=== PATIENT | female | born 1995 | race Caucasian/White ===

== ENCOUNTER → 2018-05-21 16:34 | Outpatient (CLI) | payer OTHER, SELFPAY ==
[2018-05-29 15:59] LABS: HPV Reflexed? NOT INDICATED
== END ==
PROVIDERS: Visit Provider Obstetrics & Gynecology
DX: Z12.4 Encounter for screening for malignant neoplasm of cervix (principal)
CPT/HCPCS: 88175; G0145

== ENCOUNTER → 2019-05-27 11:16 | Outpatient (CLI) | payer OTHER, SELFPAY ==
[2019-06-02 15:17] LABS: HPV Reflexed? NOT INDICATED
== END ==
PROVIDERS: Visit Provider Obstetrics & Gynecology
DX: Z12.4 Encounter for screening for malignant neoplasm of cervix (principal)
CPT/HCPCS: 88175; G0145

== ENCOUNTER → 2021-07-27 08:53 | Outpatient (CLI) | payer OTHER, SELFPAY ==
[2021-08-02 18:52] LABS: HPV Reflexed? NOT INDICATED
== END ==
PROVIDERS: Visit Provider Obstetrics & Gynecology
DX: Z12.4 Encounter for screening for malignant neoplasm of cervix (principal)
CPT/HCPCS: 88175; G0145

== ENCOUNTER → 2022-11-12 | Outpatient (CLI) | payer OTHER, SELFPAY ==
[2022-11-12 13:15] LABS: hCG Titer Quant., Serum 502 mIU/mL (1-3)
== END | disposition home or self-care (01) ==
LOC: PAVLAB 12:10
PROVIDERS: PCP Family Medicine; Referring Provider Obstetrics & Gynecology; Visit Provider Obstetrics & Gynecology
DX: N92.0 Excessive and frequent menstruation with regular cycle (principal)
CPT/HCPCS: 36415; 84702

== ENCOUNTER → 2022-11-14 | Outpatient (CLI) | payer OTHER, SELFPAY ==
[2022-11-14 13:43] LABS: hCG Titer Quant., Serum 1005 mIU/mL (1-3)
== END | disposition home or self-care (01) ==
LOC: PAVLAB 12:37
PROVIDERS: PCP Family Medicine; Referring Provider Obstetrics & Gynecology; Visit Provider Obstetrics & Gynecology
DX: N92.0 Excessive and frequent menstruation with regular cycle (principal)
CPT/HCPCS: 36415; 84702

== ENCOUNTER → 2022-11-26 | Outpatient (CLI) | payer OTHER, SELFPAY ==
--- NOTE | 2022-11-26 17:03 | US_ITS ---
STUDY: FIRST TRIMESTER OBSTETRICAL ULTRASOUND REASON FOR EXAM: Female, 27 years old Spotting LMP: Unknown. TECHNIQUE: Transabdominal and Transvaginal TECHNICAL QUALITY: Adequate. PRIOR ULTRASOUND: None. FINDINGS: There is visualization of a single gestational sac in a normal intrauterine position. The mean sac diameter (MSD) measures 1.8 cm, indicating an estimated gestational age (EGA) of 6 weeks, 5 days. The gestational sac shape is within normal limits. There is a visualized yolk sac. The yolk sac measures 0.4 cm. The placenta is non-visualized. There is visualization of a live embryo. The crown-rump length (CRL) measures 0.5 cm, indicating an estimated gestational age (EGA) of 6 weeks, 3 days. There is demonstrated cardiac activity with a heart rate of 119 bpm. The estimated gestation age (EGA) by US is 6 weeks, 4 days. The estimated date of delivery (YELITZA) by US is July 18, 2023. The uterus measures 9.2 x 5.8 x 4.1 cm. There is a 0.9 cm hypoechoic region compatible subchorionic hemorrhage. There is no demonstrated uterine fibroid. The cervix is closed. The right ovary measures 2.2 x 1.8 x 1.8 cm. There are adjacent 1.6 and 0.8 cm cysts. There is no visualized right adnexal mass or complex lesion. The left ovary measures 4.6 x 2.6 x 2.4 cm. There is 2.6 cm cyst. There are are adjacent 2.0 x 1.2 cm cysts. There is no visualized left adnexal mass or complex lesion. There is no fluid in the cul de sac. US/Transvaginal w/Preg US IMPRESSION: Single intrauterine gestation 6 weeks 4 days with estimated due date July 18, 2023. There is small region of subchorionic hemorrhage. Ovarian and paraovarian cysts. Electronically Signed: Ulysses Hugo MD at 18:40 EST ,
== END | disposition home or self-care (01) ==
LOC: US 17:02
PROVIDERS: PCP Family Medicine; Visit Provider Obstetrics & Gynecology
DX: O20.0 Threatened abortion (principal); O99.891 Other specified diseases and conditions complicating pregnancy; N92.0 Excessive and frequent menstruation with regular cycle
CPT/HCPCS: 36415; 76817; 84702; 86850; 86900; 86901

== ENCOUNTER → 2022-12-12 | Outpatient (CLI) | payer OTHER, SELFPAY ==
[2022-12-13 21:07] LABS: Chlamydia By Nucleic Acid AMP Negative (Negative)
[2022-12-13 22:36] LABS: Gonococcus By Nucleic Acid AMP Negative (Negative)
== END | disposition home or self-care (01) ==
LOC: LABSPEC 10:51
PROVIDERS: PCP Family Medicine; Referring Provider Obstetrics & Gynecology; Visit Provider Obstetrics & Gynecology
DX: Z34.90 Encounter for supervision of normal pregnancy, unspecified, unspecified trimester (principal)
CPT/HCPCS: 87086; 87491; 87591

== ENCOUNTER → 2023-01-08 | Outpatient (CLI) | payer OTHER, SELFPAY ==
[2023-01-08 16:41] LABS: Basophil# 0.03 X10^3/uL; Basophil% 0.4 % (0-1); Eosinophil# 0.07 X10^3/uL; Eosinophils% 0.8 % (0-5); Hematocrit 38.4 % (37-47); Hemoglobin 12.5 g/dL (12.0-15.0); Lymphocyte % 22.3 % (19-41); Mean Corp Hgb Conc 32.6 g/dL (32-36); Mean Corpuscular Hgb 31.6 pg (27.0-32.0); Mean Platelet Vol. 10.3 fl (6.2-12.0); Monocyte% 5.9 % (0-10); NRBC Flagged by Analyzer 0 % (0-5); Neutrophil # 5.98 X10^3/uL (2.7-7.7); Platelet Count 277 K/mm3 (150-450); RBC Distribution Width CV 12.5 % (11.6-14.6); RBC Distribution Width SD 44.6 fl (35.1-43.9); Red Blood Count 3.96 M/mm3 (4.2-5.4); White Blood Count 8.5 K/mm3 (4.4-11.0)
[2023-01-08 17:32] LABS: NATERA MAILED SPECIMEN
[2023-01-08 19:59] LABS: HIV - WCH Non-Reactive (Nonreactive); Hepatitis B Surface Antigen Non-Reactive (Nonreactive); Hepatitis C Antibody Non-Reactive (Nonreactive); Rubella IgG Reactive (Nonreactive); Syphilis Antibodies Non-reactive
== END | disposition home or self-care (01) ==
PROVIDERS: PCP Family Medicine; Referring Provider Obstetrics & Gynecology; Visit Provider Obstetrics & Gynecology
DX: Z34.82 Encounter for supervision of other normal pregnancy, second trimester (principal)
CPT/HCPCS: 36415; 85025; 86703; 86762; 86780; 86803; 86850; 86900; 86901; 87340

== ENCOUNTER → 2023-04-02 | Outpatient (CLI) | payer OTHER, SELFPAY ==
[2023-04-02 11:50] LABS: Absolute Lymphocyte Count 1.53 X10^3/uL (0.83-4.51); Absolute Neutrophil Count 8.9 X10^3/uL (2.0-7.7); Basophil# 0.06 X10^3/uL; Basophil% 0.5 % (0-1); Eosinophil# 0.08 X10^3/uL; Eosinophils% 0.7 % (0-5); Hematocrit 31.8 % (37-47); Hemoglobin 10.3 g/dL (12.0-15.0); Lymphocyte # 1.53 X10^3/ul (0.83-4.51); Lymphocyte % 13.6 % (19-41); Mean Corp Hgb Conc 32.4 g/dL (32-36); Mean Corpuscular Hgb 31.7 pg (27.0-32.0); Mean Corpuscular Volume 97.8 fL (81-99); Mean Platelet Vol. 10.5 fl (6.2-12.0); Monocyte% 4.5 % (0-10); NRBC Flagged by Analyzer 0 % (0-5); Neutrophil # 8.88 X10^3/uL (2.7-7.7); Neutrophil % 79.3 % (47-70); Platelet Count 294 K/mm3 (150-450); RBC Distribution Width CV 13.5 % (11.6-14.6); RBC Distribution Width SD 48.3 fl (35.1-43.9); Red Blood Count 3.25 M/mm3 (4.2-5.4); White Blood Count 11.2 K/mm3 (4.4-11.0)
[2023-04-02 12:05] LABS: Glucose Challenge Gest 1H 50g 122 mg/dL (70-140)
[2023-04-02 12:38] LABS: HIV - WCH Non-Reactive (Nonreactive); Syphilis Antibodies Non-reactive
== END | disposition home or self-care (01) ==
LOC: PAVLAB 11:13
PROVIDERS: PCP Family Medicine; Referring Provider Obstetrics & Gynecology; Visit Provider Obstetrics & Gynecology
DX: O09.90 Supervision of high risk pregnancy, unspecified, unspecified trimester (principal); Z13.1 Encounter for screening for diabetes mellitus
CPT/HCPCS: 36415; 82950; 85025; 86703; 86780

== ENCOUNTER → 2023-04-23 | Outpatient (CLI) | payer OTHER, SELFPAY | END | disposition home or self-care (01) | LOC: LABSPEC 11:38 | PROVIDERS: PCP Family Medicine; Referring Provider Nurse Practitioner Women's Health; Visit Provider Nurse Practitioner Women's Health | DX: N39.0 Urinary tract infection, site not specified (principal) | CPT/HCPCS: 87086; 87088 ==

== ENCOUNTER → 2023-05-31 | Outpatient (CLI) | payer OTHER, SELFPAY ==
[2023-05-31 15:47] LABS: ALB/GLOB Ratio 0.7 RATIO (0.9-2.4); AST(SGOT) 15 U/L (15-37); Alanine Aminotransfer ALT/SGPT 16 U/L (13-56); Albumin, Serum 2.7 g/dL (3.2-5.0); Alkaline Phosphatase 92 U/L (45-117); Anion Gap 9 (5-15); BUN 8 mg/dL (7-18); BUN/Creat Ratio 13.5 RATIO (10-20); Chloride 108 mmol/L (98-107); Creatinine, Serum 0.59 mg/dL (0.55-1.02); EST Glomerular Filtration Rate 127 mL/min (>60); Est Glom Filt Rate - Afr Amer 153 mL/min (>60); Globulin 3.8 g/dL (2.2-4.2); Glucose 81 mg/dL (74-106); Potassium 3.4 mmol/L (3.5-5.1); Protein, Total 6.5 g/dL (6.4-8.2); Sodium Level 139 mmol/L (136-145)
== END | disposition home or self-care (01) ==
PROVIDERS: PCP Family Medicine; Referring Provider Obstetrics & Gynecology; Visit Provider Obstetrics & Gynecology
DX: L29.9 Pruritus, unspecified (principal)
CPT/HCPCS: 36415; 80053

== ENCOUNTER → 2023-06-14 | Outpatient (CLI) | payer OTHER, SELFPAY | END | disposition home or self-care (01) | PROVIDERS: Referring Provider Registered Nurse; Visit Provider Registered Nurse | DX: O09.90 Supervision of high risk pregnancy, unspecified, unspecified trimester (principal); Z3A.00 Weeks of gestation of pregnancy not specified | CPT/HCPCS: 87081 ==

== ENCOUNTER → 2023-06-21 | Outpatient (CLI) | payer OTHER, SELFPAY ==
[2023-06-21 15:49] LABS: Hematocrit 33.4 % (37-47); Hemoglobin 10.6 g/dL (12.0-15.0); Mean Corp Hgb Conc 31.7 g/dL (32-36); Mean Corpuscular Hgb 31.6 pg (27.0-32.0); Mean Corpuscular Volume 99.7 fL (81-99); Mean Platelet Vol. 10.8 fl (6.2-12.0); Platelet Count 289 K/mm3 (150-450); RBC Distribution Width CV 13.2 % (11.6-14.6); RBC Distribution Width SD 48.2 fl (35.1-43.9); Red Blood Count 3.35 M/mm3 (4.2-5.4); White Blood Count 10.5 K/mm3 (4.4-11.0)
== END | disposition home or self-care (01) ==
LOC: LAB 14:36
PROVIDERS: Referring Provider Registered Nurse; Visit Provider Registered Nurse
DX: D64.9 Anemia, unspecified (principal)
CPT/HCPCS: 36415; 85027

== ENCOUNTER → 2023-06-27 | Outpatient (CLI) | payer OTHER, SELFPAY ==
[2023-06-27 14:04] LABS: Absolute Neutrophil Count 6.9 X10^3/uL (2.0-7.7); Basophil# 0.06 X10^3/uL; Basophil% 0.6 % (0-1); Eosinophil# 0.05 X10^3/uL; Eosinophils% 0.5 % (0-5); Hematocrit 35.2 % (37-47); Hemoglobin 11.3 g/dL (12.0-15.0); Lymphocyte % 17.9 % (19-41); Mean Corp Hgb Conc 32.1 g/dL (32-36); Mean Corpuscular Hgb 31.7 pg (27.0-32.0); Mean Corpuscular Volume 98.6 fL (81-99); Mean Platelet Vol. 10.6 fl (6.2-12.0); Monocyte# 0.65 X10^3/uL; Monocyte% 6.8 % (0-10); NRBC Flagged by Analyzer 0 % (0-5); Neutrophil # 6.88 X10^3/uL (2.7-7.7); Neutrophil % 72.4 % (47-70); Platelet Count 284 K/mm3 (150-450); RBC Distribution Width CV 13.2 % (11.6-14.6); RBC Distribution Width SD 47.8 fl (35.1-43.9); Red Blood Count 3.57 M/mm3 (4.2-5.4); White Blood Count 9.5 K/mm3 (4.4-11.0)
[2023-06-27 14:18] LABS: Protein, Urine (Random) 9.5 mg/dL (<11.9); Protein:Creat Ratio 242 mg/g CRE (0-200)
[2023-06-27 14:37] LABS: ALB/GLOB Ratio 0.8 RATIO (0.9-2.4); AST(SGOT) 18 U/L (15-37); Alanine Aminotransfer ALT/SGPT 15 U/L (13-56); Albumin, Serum 2.8 g/dL (3.2-5.0); Alkaline Phosphatase 125 U/L (45-117); Anion Gap 6 (5-15); BUN 8 mg/dL (7-18); BUN/Creat Ratio 10.1 RATIO (10-20); Calcium,Total 8.5 mg/dL (8.5-10.1); Chloride 110 mmol/L (98-107); Creatinine, Serum 0.79 mg/dL (0.55-1.02); EST Glomerular Filtration Rate 91 mL/min (>60); Est Glom Filt Rate - Afr Amer 110 mL/min (>60); Globulin 3.6 g/dL (2.2-4.2); Glucose 78 mg/dL (74-106); Potassium 3.1 mmol/L (3.5-5.1); Protein, Total 6.4 g/dL (6.4-8.2); Sodium Level 141 mmol/L (136-145)
== END | disposition home or self-care (01) ==
LOC: PAVLAB 13:47
PROVIDERS: Referring Provider Obstetrics & Gynecology; Visit Provider Obstetrics & Gynecology
DX: O09.90 Supervision of high risk pregnancy, unspecified, unspecified trimester (principal); Z3A.00 Weeks of gestation of pregnancy not specified
CPT/HCPCS: 36415; 80053; 82570; 84156; 85025

== ENCOUNTER 2023-07-05 12:05 | Inpatient (IN) | payer OTHER, SELFPAY ==
[2023-07-05] VITALS (51 sets, daily range): BP systolic 111–133; BP diastolic 55–88; PULSE 77–113; TEMP 35.8–37.3; O2SAT 91–100; BMI 24.3
[2023-07-05] MEDS: Lactated Ringers 1,000 ML 50 ML IV (13:00)
[2023-07-05 13:13] LABS: Absolute Lymphocyte Count 1.32 X10^3/uL (0.83-4.51); Absolute Neutrophil Count 7.3 X10^3/uL (2.0-7.7); Basophil# 0.04 X10^3/uL; Basophil% 0.4 % (0-1); Eosinophil# 0.03 X10^3/uL; Eosinophils% 0.3 % (0-5); Hematocrit 31.8 % (37-47); Hemoglobin 10.6 g/dL (12.0-15.0); Lymphocyte # 1.32 X10^3/ul (0.83-4.51); Lymphocyte % 14.3 % (19-41); Mean Corp Hgb Conc 33.3 g/dL (32-36); Mean Corpuscular Hgb 32.1 pg (27.0-32.0); Mean Corpuscular Volume 96.4 fL (81-99); Mean Platelet Vol. 10.4 fl (6.2-12.0); Monocyte# 0.46 X10^3/uL; NRBC Flagged by Analyzer 0 % (0-5); Neutrophil # 7.28 X10^3/uL (2.7-7.7); Platelet Count 274 K/mm3 (150-450); RBC Distribution Width CV 13.2 % (11.6-14.6); RBC Distribution Width SD 47.1 fl (35.1-43.9); White Blood Count 9.2 K/mm3 (4.4-11.0)
[2023-07-05] MEDS: Oxytocin 15 Units/NS 250ml 15 UNITS/250 ML IV.SOLN 2 UNITS IV (13:30)
[2023-07-05 14:08] LABS: ALB/GLOB Ratio 0.8 RATIO (0.9-2.4); AST(SGOT) 15 U/L (15-37); Alanine Aminotransfer ALT/SGPT 14 U/L (13-56); Albumin, Serum 2.7 g/dL (3.2-5.0); Alkaline Phosphatase 129 U/L (45-117); Anion Gap 7 (5-15); BUN 6 mg/dL (7-18); BUN/Creat Ratio 8.4 RATIO (10-20); Calcium,Total 8.6 mg/dL (8.5-10.1); Chloride 109 mmol/L (98-107); Creatinine, Serum 0.71 mg/dL (0.55-1.02); EST Glomerular Filtration Rate 103 mL/min (>60); Est Glom Filt Rate - Afr Amer 124 mL/min (>60); Estimated Creatinine Clearance 121.08 ml/min; Globulin 3.6 g/dL (2.2-4.2); Glucose 106 mg/dL (74-106); Protein, Total 6.3 g/dL (6.4-8.2); Sodium Level 140 mmol/L (136-145)
--- NOTE | 2023-07-05 15:58 | HP.PCM.OB_ITS ---
HPI - General General Date of Admission: 07/05/23 Date of Service: 07/05/23 HPI Narrative LIZBETH SMA, is a 28 F at 39.0 weeks who presents to L&D after being seen in the office. Low fundal height and US performed by Dr Ortega. Verified low SIOBHAN. Patient sent to unit for IOL due to oligohydramnios. Maternal Data Information YELITZA Calculator Estimated Delivery Date Method Current WG Current Estimate 07/12/23 LMP (Certain) 39w 0d Final YELITZA: 07/12/23 Final YELITZA Source: US >20 weeks Gestational age: 39.0 [facility] Medical History (Updated 07/05/23 @ 16:02 by Whitney Case CNM) Asthma Oligohydramnios Well woman exam with routine gynecological exam Home Medications cholecalciferol (vitamin D3) 50 mcg (2,000 unit) capsule 50 mcg PO DAILY ask doctor 07/31/22 [History Last Taken Unknown] montelukast 10 mg tablet (Singulair) 10 mg PO DAILY seasonal allergy 07/31/22 [History Last Taken Unknown] diphenhydramine HCl 25 mg capsule (Benadryl) 25 mg PO QHS PRN seasonal allergy 12/06/22 [History Last Taken Unknown] multivit-min no.71-iron fum 28 mg-folate no.1 1 mg-dha 300 mg capsule (PNV- [place]) 1 cap PO 12/06/22 [History Last Taken Unknown] albuterol sulfate 90 mcg/actuation aerosol inhaler See Rx Instructions .Route .COMPLEX asthma #8.5 ea 01/10/23 [Rx Last Taken Unknown] Allergy/AdvReac Type Severity Reaction Status Date / Time No Known Allergies Allergy Verified 07/05/23 13:19 Family History Grandfather Stomach cancer Colon cancer, Onset Age: 55 Paternal Social History adopted: No household members: spouse housing: house current occupational status: employed current occupation: [employer] current occupational exposures/hazards: No pets and animals: Yes pets and animals: dog(s) history of recent travel: No sexually active: Yes Smoking Status: Never smoker alcohol intake: current details: occasionally- not while substance use type: does not use well-balanced diet: daily or most days caffeine: No eating out: 1-3 times/week during the past year weight has: remained stable what type of physical activity do you participate in: walking frequency: 5-6 times per week duration: 15-30 minutes/day altagracia/episcopalian: None seatbelt use: always do you feel safe at home: Yes additional social history: - Lamine- [employer] History 1 Elective abortions Hx Para 0 Spontaneous abortions Hx # Term Pregnancies Ectopic pregnancies Hx # Pregnancies Multiple births # of living children Visit Details Expected Delivery Route/Plan Labor Preferences- CB/BF classes: encourage labor support person: Lamine labor intervention preferences: pain management options preferred: open to epidural cut cord/dad catch: would love to catch! : [] PP control planned: [] discussed possible routes of delivery and associated risks: [] special requests: [] Plans Covid status: discussed Flu vaccine: discussed Tdap vaccine: discussed Rhogam: na LARC form signed: obtained movement and labor precautions reviewed. Problem list reviewed and updated with the most current plan of care details and appropriate orders placed. Relevant counseling for the gestational age provided. Continue routine care and follow up unless otherwise noted in visit notes/problem list details OB Flowsheet Initial Weight: Not Recorded Date -?-?-?-?-?-?-?-?-?-?-?-?- EGA Weight BP Urine Prot -?-?-?-?-?-?-?-?-?-?-?-?- Glucose FHR FuHt Pres Dilation -?-?-?-?-?-?-?-?-?-?-?-?- Effaced St Visit Note 12/12/22 -?-?-?-?-?-?-?-?-?-?-?-?- 9w 5d 147 lb 8 oz 133/81 -?-?-?-?-?-?-?-?-?-?-?-?- 163 -?-?-?-?-?-?-?-?-?-?-?-?- LC- CRL c/w LMP. considering genetic screening and carrier screenings. LC- CRL c/w LMP. 2mm SHELLY not ed. +brown bleeding. considering genetic screening and carrier screenings. 01/08/23 -?-?-?-?-?-?-?-?-?-?-?-?- 13w 4d 149 lb 2 oz 134/85 Nega tive -?-?-?-?-?-?-?-?-?-?-?-?- Negative 155 -?-?-?-?-?-?-?-?-?-?-?-?- JV- still having some spotting. unsure if typo above, SHELLY is 22mm. active movement present. precautions discussed. pt desires NIPT only 02/06/23 -?-?-?-?-?-?-?-?-?-?-?-?- 17w 5d 151 lb 6 oz 133/72 Nega tive -?-?-?-?-?-?-?-?-?-?-?-?- Negative 152 -?-?-?-?-?-?-?-?-?-?-?-?- MH-No Vb, crampi ng. Feels well. MFM US 02/1203/08/23 -?-?-?-?-?-?-?-?-?-?-?-?- 22w 0d 156 lb 8 oz 133/80 Nega tive -?-?-?-?-?-?-?-?-?-?-?-?- Negative 145 22 -?-?-?-?-?-?-?-?-?-?-?-?- KW-+flutters. no cramping/vb. US reviewed-normal. GCT next visit 04/05/23 -?-?-?-?-?-?-?-?-?-?-?-?- 26w 0d 161 lb 4 oz 130/79 Nega tive -?-?-?-?-?-?-?-?-?-?-?-?- Negative 140 26 -?-?-?-?-?-?-?-?-?-?-?-?- SM- no vb lof go od fm no regular ctx 04/23/23 -?-?-?-?-?-?-?-?-?-?-?-?- 28w 4d 162 lb 4 oz 118/76 Nega tive -?-?-?-?-?-?-?-?-?-?-?-?- Negative -?-?-?-?-?-?-?-?-?-?-?-?- -nurse visit f or urinary frequency. +UA. Rx macrobid. Culture pending 05/03/23 -?-?-?-?-?-?-?-?-?-?-?-?- 30w 0d 130/67 Negative -?-?-?-?-?-?-?-?-?-?-?-?- Negative 150 29 -?-?-?-?-?-?-?-?-?-?-?-?- Kw-+ FM. no lof/ vb/ctx LARC done. no concerns 05/17/23 -?-?-?-?-?-?-?-?-?-?-?-?- 32w 0d 161 lb 4 oz 130/81 Nega tive -?-?-?-?-?-?-?-?-?-?-?-?- Negative 150 32 -?-?-?-?-?-?-?-?-?-?-?-?- LC- no vb/ctx/lo f. good fm. CBE recommended, reviewed pain mgmt. 05/31/23 -?-?-?-?-?-?-?-?-?-?-?-?- 34w 0d 164 lb 131/76 Negative -?-?-?-?-?-?-?-?-?-?-?-?- Negative 165 34 -?-?-?-?-?-?-?-?-?-?-?-?- JV- pt complains of itching on bottom of feet She denies hands itching. will collect bile acids to be on safe side. no other complaints other than some swelling that is minor. 06/14/23 -?-?-?-?-?-?-?-?-?-?-?-?- 36w 0d 168 lb 6 oz 130/76 Nega tive -?-?-?-?-?-?-?-?-?-?-?-?- Negative 140 36 Cephalic -?-?-?-?-?-?-?-?-?-?-?-?- LC- no complaint s. no ctx/lof/vb. good fm. less itching. obtaining repeat cbc for anemia. 06/21/23 -?-?-?-?-?-?-?-?-?-?-?-?- 37w 0d 198 lb 8 oz 157/84 122/68 Negative -?-?-?-?-?-?-?-?-?-?-?-?- Negative 145 37 Cephalic -?-?-?-?-?-?-?-?-?-?-?-?- SM- no vb lof go od fm no regular ctx 06/27/23 -?-?-?-?-?-?-?-?-?-?-?-?- 37w 6d 165 lb 8 oz 147/84 130/87 Negative -?-?-?-?-?-?-?-?-?-?-?-?- Negative 155 38 Cephalic 2 .5 -?-?-?-?-?-?-?-?-?-?-?-?- 80 -1 SM- no vb lof good fm no regular ctx 07/01/23 -?-?-?-?-?-?-?-?-?-?-?-?- 38w 3d 168 lb 8 oz 137/81 Nega tive -?-?-?-?-?-?-?-?-?-?-?-?- Negative -?-?-?-?-?-?-?-?-?-?-?-?- -nurse visit f or BP check only. Wnl. Denies headache vision changes 07/05/23 -?--?-?-?-?-?-?-?-?-?-?-?- 39w 0d 167 lb 8 oz 152/88 Nega tive -?-?-?-?-?-?-?-?-?-?-?-?- Negative 145 35 Cephalic 3 -?-?-?-?-?-?-?-?-?-?-?-?- 80 -1 KW-no vb/l of/regular ctx. good fm. labor precautions reviewed. US ordered for S<L KW-no vb/lof/regular ctx. go od fm. labor precautions reviewed. SM did office US. Oligo-to WP for IOL NST FHR Rate Baby A Baseline: 145 Variability:: Moderate Accelerations:: 15 x 15 Decelerations:: None NST Reactive:: Yes FHR Category:: Category I Uterine Activity:: irregular ROS Constitutional Constitutional: Denies change in weight, fatigue, fever(s), headache(s), poor appetite or weakness Eyes Eyes: Denies blurry vision, change in vision, floaters, seeing flashes or spots in vision ENT HEENT: Denies dizziness, headache(s), loss taste/smell or sore throat Cardiovascular Cardiovascular: Denies chest pain, dizziness, dyspnea, irregular heart rhythm, lightheadedness, palpitations or rapid heart rate Respiratory/Chest Respiratory/Chest: Denies change in mental status, chest tightness, cough, dyspnea or breast pain Gastrointestinal Gastrointestinal: Denies anorexia, chewing difficulty, constipation, diarrhea or weight changes Genitourinary Genitourinary: Denies difficulty urinating, dysuria, flank pain, genital pain, urinary frequency or urinary urgency Musculoskeletal Musculoskeletal: Denies back pain, difficulty walking, extremity pain, joint pain, muscle cramps or muscle weakness Integumentary Integumentary: Denies lesions or unusual bruising Neurologic Neurologic: Denies abnormal movements, abnormal speech, dizziness, numbness, seizure-like activity, syncope or weakness Psychiatric Psychiatric: Denies behavioral changes, change in appetite, confusion, depression, homicidal ideation, suicidal ideation or suicidal thoughts Endocrine Endocrinology: Denies excessive sweating, polydipsia or polyuria Hematologic/Lymphatic Hematologic/Lymphatic: Denies anemia Allergic/Immunologic Allergic/Immunologic: Denies itchy eyes, lip swelling, throat swelling, tongue swelling or wheezing Vital Signs Vital Signs Vital Signs: 07/05/23 12:35 07/05/23 12:35 07/05/23 12:35 Temperature 99.1 F Temperature Source Pulse Rate 102 H Blood Pressure 129/82 H BP Systolic 129 BP Diastolic 82 07/05/23 12:35 07/05/23 12:35 07/05/23 13:55 Temperature 99.1 F Temperature Source Temporal Pulse Rate Blood Pressure 126/71 H BP Systolic 126 BP Diastolic 71 07/05/23 13:55 07/05/23 13:55 07/05/23 13:56 Temperature 98.2 F Temperature Source Temporal Pulse Rate 94 Blood Pressure BP Systolic BP Diastolic 07/05/23 13:56 07/05/23 15:15 07/05/23 15:15 Temperature 98.2 F Temperature Source Pulse Rate 93 Blood Pressure 129/63 H BP Systolic 129 BP Diastolic 63 07/05/23 15:15 Temperature 99.1 F Temperature Source Pulse Rate Blood Pressure BP Systolic BP Diastolic Weight Weight: 164 lb 12.8 oz Body Mass Index (BMI) 24.3 Physical Exam Const alert, oriented x3 and no apparent distress General Appearance: cooperative Orientation / Consciousness: awake HEENT normocephalic Neck full ROM Lymph Lymphatic: no lymphadenopathy noted Chest inspection of chest normal Resp normal respiratory effort and normal air movement Effort and Inspection: able to speak in complete sentences and symmetric chest movement GI soft to palpation and non-tender Inspection: gravid Palpation: soft; Negative for tender external exam normal Back/Spine normal to inspection Extremity normal to inspection and full ROM Skin no rashes or lesions noted Psych mental status grossly normal Appearance: grossly normal Speech: normal speech Labs Labs Labs: Blood Type A POSITIVE Antibody Screen NEGATIVE Hct 31.8 % (37-47) L Hgb 10.6 g/dL (12.0-15.0) L Obstetrics US Syphilis Total Ab Non-reactive Rubella IgG Antibody Reactive (Nonreactive) Hep Bs Antigen Non-Reactive (Nonreactive) Chlamydia DNA (BHUPENDRA) Negative (Negative) Neisseria gonorrhoeae DNA (BHUPENDRA) Negative (Negative) HIV 1&2 Antibody Non-Reactive (Nonreactive) Glucose 1 Hr 50 gm 122 mg/dL (70-140) Miscellaneous Test Assessment & Plan (1) Fundal height low for dates: COMMENT: US (2) Oligohydramnios: (3) Anemia: QUALIFIERS: Anemia type: unspecified type Qualified Code(s): D64.9 - Anemia, unspecified (4) UTI (urinary tract infection): COMMENT: + UA, Macrobid. Culture pending (5) Supervision of high risk , antepartum: COMMENT: PRR , YELITZA 07/12/23, surprise Lamine (6) : QUALIFIERS: Weeks of gestation: 39 weeks Qualified Code(s): Z3A.39 - 39 weeks gestation of COMMENT: GBS neg, LR NIPT Decline carrier testing, anatomy nl declined afp screen. (7) Asthma: COMMENT: controlled with singulair albuterol inhaler ordered (8) Encounter for induction of labor: COMMENT: oligohydramnios at 39.0 weeks PLAN: Patient presents IOL, plan management for with pitocin/AROM. Pain management: plans epidural. GBS negative. Management of any complications: oligohydramnios, asthma I have reviewed the PFSH and made any clinically relevant updates. Reviewed POC with dr ortega and agrees with plan.
[2023-07-05] MEDS: LACTATED RINGERS 500 ML 999 ML IV (17:23)
[2023-07-05] MEDS: fentaNYL-bupivacaine (epidural) 100 ML BAG EPIDURAL (18:55)
--- NOTE | 2023-07-05 21:25 | OP.PCM_ITS ---
Assessment & Plan (1) Vaginal delivery: COMMENT: KW 39.0 oligo-IOL Boy Naeem (2) Encounter for induction of labor: COMMENT: oligohydramnios at 39.0 weeks (3) Oligohydramnios: (4) Fundal height low for dates: COMMENT: US (5) Hypokalemia: COMMENT: repeat potassium 1 week (6) Anemia: QUALIFIERS: Anemia type: unspecified type Qualified Code(s): D64.9 - Anemia, unspecified (7) Itching: COMMENT: on feet bile acids negative (8) Supervision of high risk , antepartum: COMMENT: PRR , YELITZA 07/12/23, surprise Lamine (9) : QUALIFIERS: Weeks of gestation: 39 weeks Qualified Code(s): Z3A.39 - 39 weeks gestation of COMMENT: GBS neg, LR NIPT Decline carrier testing, anatomy nl declined afp screen. (10) Asthma: COMMENT: controlled with singulair albuterol inhaler ordered Maternal Data Information YELITZA Calculator Estimated Delivery Date Method Current WG Current Estimate 07/12/23 LMP (Certain) 39w 0d Final YELITZA: 07/12/23 Final YELITZA Source: US >20 weeks Gestational age: 39.0 weeks Vaginal Delivery Maternal Presentation Maternal Presentation: Medically Indicated Induction Maternal Presentation: Progressed well to 10cm dilated and made steady progress with effective maternal pushing. Delivered the head in ANIKA presentation. The head was delivered atraumatically and no nuchal cord was identified. The anterior and posterior shoulders delivered without complication followed by the rest of the and the infant was placed on the maternal abdomen. Delayed cord clamping was employed for approximately 3 minutes. Cord was clamped and cut and gentle traction was applied to the cord and the placenta delivered spontaneously. Immediately following, it was noted to be intact with a 3 vessel cord. The perineum and vagina were inspected and noted to have a first degree laceration which was repaired with 3-0 Vicryl in the usual fashion. EBL was 150cc. Patient and infant tolerated delivery well. Apgars 9/9. Dr Ortega notified of vaginal delivery and orders reviewed. Physician agrees with current plan of care. Type of Induction: Pitocin Medical Reason for Induction: Compromise: list: (oligohydramnios ) Operative Information Date of Procedure: 07/05/23 Pre-Operative Diagnosis: See AP comments Post-Operative Diagnosis: Same Surgery / Procedure Performed: Spontaneous Vaginal Delivery specialty food products supervisor #1: Whitney Case Type of Anesthesia: Epidural Estimated Blood Loss: 150 Time of Delivery: 20:57 Findings Presentation: Vertex Amniotic Membrane Rupture Type: Artificial Amniotic Fluid Description: Clear Placental Delivery Description: Spontaneous Placenta Disposition: [facility] Cord Vessel Description: 3 Vessels Cord Entanglement: None Infant A Gender: Male (1 minute): 9 (5 minute): 9 Delayed Cord Clamping: Yes Post Vaginal Delivery Medications Given After Delivery: IV Pitocin and IM Methergin Episiotomy Description: None Laceration: 1st degree Complication Complications: None Multi Select Codes Urinary/Genital Urinary/Genital CPT Codes: 68622 Vaginal Delivery [facility]
--- NOTE | 2023-07-05 21:34 | DCINST_ITS ---
Discharge Instructions Diet Discharge Diet: No restrictions Activity Discharge Activity: Return to Normal Activity May resume sexual activity in: 6-8 weeks Dressing / Incision Call your doctor if you observe: Fever of 101 or Higher, Coldness, Increased Pain, Numbness or Tingling, Change in Color, Inability to urinate, Inability to have a bowel movement, Using more than 1 pad per hour, Shortness of breath, Dizziness, Fainting spells, Swelling in the ankles, Chest pain, Increased palpitations (irregular heartbeat), Calf discomfort and Uncontrolled pain Follow Up Care Please Follow Up With: Whitney Case CNM When: Please call the office to schedule your follow up appointment in 6 weeks. If you had high blood pressure please call to schedule an appointment in 2 weeks. Test Results: Test results from this visit will be discussed in further detail at your follow- up appointment, if applicable. Discharge Plan Admission Admit Date/Time: 07/05/23 12:05 Attending Provider: Whitney Case Consulting Providers: Ivelisse Ortega Discharge Orders/Prescriptions Prescriptions: No Action montelukast [Singulair] 10 mg tablet 10 mg PO DAILY cholecalciferol (vitamin D3) 50 mcg (2,000 unit) capsule 50 mcg PO DAILY PNV-[place] 28-1-300 mg capsule 1 cap PO diphenhydramine HCl [Benadryl] 25 mg capsule 25 mg PO QHS PRN (Reason: seasonal allergy ) albuterol sulfate 90 mcg/actuation HFA aerosol inhaler See Rx Instructions .ROUTE .COMPLEX Qty: 8.5 0RF Dose Instruction: INHALE 2 PUFFS EVERY 6 HOURS NEEDED FOR SHORTNESS OF BREATH OR WHEEZING Rx Instructions: INHALE 2 PUFFS EVERY 6 HOURS NEEDED FOR SHORTNESS OF BREATH OR WHEEZING Disposition Disposition (needs filled in before D/C Order can be placed): Home, Self Care
[2023-07-05] MEDS: Oxytocin 15 Units/NS 250ml 15 UNITS/250 ML IV.SOLN 83 UNITS IV (21:49)
[2023-07-06] MEDS: 0.9% Saline Lock 10 ML Syringe IV (01:06)
[2023-07-06] MEDS: Potassium Chloride Oral Tablet 10 MEQ PO ×2 (01:07→07:37)
--- NOTE | 2023-07-06 02:32 | NURSING ---
report given to marlen ROSARIO. that rn to assume care of couplet at this time.
[2023-07-06 03:47] VITALS: BP 123/68; PULSE 76; RESP 18; TEMP 36.8
[2023-07-06] MEDS: Acetaminophen 500 MG Tablet 1000 MG PO ×3 (03:48→23:24)
[2023-07-06 07:39] VITALS: BP 148/53; PULSE 94; RESP 16; TEMP 36.6
[2023-07-06] MEDS: Ibuprofen 600 MG Tablet PO ×2 (09:23→17:32)
--- NOTE | 2023-07-06 09:34 | PCM.PN.OB ---
Subjective Subjective Patient doing well without complaints. Tolerating PO. Ambulating and voiding without difficulty. Feeding well. Denies chest pain, shortness of breath, calf pain/swelling, fevers, chills, lightheadedness. Objective Data Objective Data Vital Signs: Vital Signs Temp Pulse Resp BP Pulse Ox O2 Del Method 97.8 F 94 16 148/53 H 98 Room Air 07/06/23 07:39 07/06/23 07:39 07/06/23 07:39 07/06/23 07:39 07/05/23 23:19 07/06/23 03:47 Oxygen Delivery Method Room Air Weight: 164 lb 12.8 oz Body Mass Index (BMI) 24.3 Intake & Output: Intake and Output for Last 24 Hours 07/04/23 07/05/23 07/06/23 23:59 23:59 23:59 Intake Total 1705.00 / 1705.00 250 / 250 Output Total 750 / 750 400 / 400 Balance 955.00 / 955.00 -150 / -150 Lab / Micro Data 07/05/23 13:00 07/05/23 13:00 Labs: Laboratory Results - last 24 hr 07/05/23 13:00: WBC 9.2, RBC 3.30 L, Hgb 10.6 L, Hct 31.8 L, MCV 96.4, MCH 32.1 H, MCHC 33.3, RDW Std Deviation 47.1 H, RDW Coeff of Romario 13.2, Plt Count 274, MPV 10.4, Immature Gran % (Auto) 1.000 H, Neut % (Auto) 79.0 H, Lymph % (Auto) 14.3 L, [place] % (Auto) 5.0, Eos % (Auto) 0.3, Baso % (Auto) 0.4, Absolute Neuts (auto) 7.3, Absolute Lymphs (auto) 1.32, Nucleated RBC % 0, Sodium 140, Potassium 3.0 L, Chloride 109 H, Carbon Dioxide 24.0, Anion Gap 7, BUN 6 L, Creatinine 0.71, Estim Creat Clear Calc 121.08, Est GFR (MDRD) Af Amer 124, Est GFR (MDRD) Non-Af 103, BUN/Creatinine Ratio 8.4 L, Glucose 106, Calcium 8.6, Total Bilirubin 0.30, AST 15, ALT 14, Alkaline Phosphatase 129 H, Total Protein 6.3 L, Albumin 2.7 L, Globulin 3.6, Albumin/Globulin Ratio 0.8 L, Blood Type A POSITIVE, Antibody Screen NEGATIVE ROS Constitutional Constitutional: Reports systems reviewed and no addt'l complaints, except as documented; Denies anorexia or headache(s) Cardiovascular Cardiovascular: Reports systems reviewed and no addt'l complaints, except as documented; Denies dizziness, dyspnea, nausea or tachypnea Respiratory/Chest Respiratory/Chest: Reports systems reviewed and no addt'l complaints, except as documented; Denies cough, dyspnea, shortness of breath at rest or tachypnea Gastrointestinal Gastrointestinal: Reports systems reviewed and no addt'l complaints, except as documented; Denies abdominal pain, constipation or nausea Genitourinary Genitourinary: Reports systems reviewed and no addt'l complaints, except as documented; Denies burning urination, difficulty urinating, dysuria, urinary frequency or urinary incontinence Musculoskeletal Musculoskeletal: Reports systems reviewed and no addt'l complaints, except as documented Integumentary Integumentary: Reports systems reviewed and no addt'l complaints, except as documented Neurologic Neurologic: Reports systems reviewed and no addt'l complaints, except as documented; Denies abnormal speech, dizziness or headache(s) Psychiatric Psychiatric: Reports systems reviewed and no addt'l complaints, except as documented Endocrine Endocrinology: Reports systems reviewed and no addt'l complaints, except as documented Hematologic/Lymphatic Hematologic/Lymphatic: Reports systems reviewed and no addt'l complaints, except as documented Physical Exam Const alert, oriented x3 and no apparent distress Neck full ROM Resp normal respiratory effort, normal air movement and no retractions Effort and Inspection: able to speak in complete sentences and symmetric chest movement GI soft to palpation Bladder / Kidney Exam: bladder normal to palpation Uterus Palpation: uterus fundus Extremity normal to inspection and full ROM Psych mental status grossly normal, thought process normal and cooperative Assessment & Plan (1) Vaginal delivery: COMMENT: KW 39.0 oligo-IOL Boy Hartley PLAN: s/p PPD # 1 1. routine post delivery care 2. breast feeding- support given 3. rh positive 4. rubella immune (2) Encounter for induction of labor: COMMENT: oligohydramnios at 39.0 weeks (3) Oligohydramnios: (4) Fundal height low for dates: COMMENT: US (5) Hypokalemia: COMMENT: repeat potassium 1 week (6) Anemia: QUALIFIERS: Anemia type: unspecified type Qualified Code(s): D64.9 - Anemia, unspecified (7) Itching: COMMENT: on feet bile acids negative (8) UTI (urinary tract infection): COMMENT: + UA, Macrobid. Culture pending (9) Supervision of high risk , antepartum: COMMENT: PRR , YELITZA 07/12/23, surprise Lamine (10) : QUALIFIERS: Weeks of gestation: 39 weeks Qualified Code(s): Z3A.39 - 39 weeks gestation of COMMENT: GBS neg, LR NIPT Decline carrier testing, anatomy nl declined afp screen. (11) Asthma: COMMENT: controlled with singulair albuterol inhaler ordered Charges/Coding Multi Select Codes Urinary/Genital Urinary/Genital CPT Codes: No Charge
[2023-07-06 12:55] VITALS: BP 130/61; PULSE 89; RESP 14; TEMP 36.6
[2023-07-06] MEDS: Potassium Chloride Oral Tablet 20 MEQ 40 MEQ PO (16:46)
[2023-07-06 16:50] VITALS: BP 123/73; PULSE 74; RESP 14; TEMP 36.5
[2023-07-06 20:06] VITALS: BP 127/58; PULSE 69; RESP 16; TEMP 36.6
[2023-07-07 02:22] VITALS: BP 117/57; PULSE 70; RESP 16; TEMP 36.2
--- NOTE | 2023-07-07 07:55 | PCM.PN.OB ---
Subjective Subjective Patient doing well without complaints. Tolerating PO. Ambulating and voiding without difficulty. Feeding well. Denies chest pain, shortness of breath, calf pain/swelling, fevers, chills, lightheadedness. Objective Data Objective Data Vital Signs: Vital Signs Temp Pulse Resp BP Pulse Ox O2 Del Method 97.2 F L 70 16 117/57 L 98 Room Air 07/07/23 02:22 07/07/23 02:22 07/07/23 02:22 07/07/23 02:22 07/05/23 23:19 07/07/23 02:22 Oxygen Delivery Method Room Air Weight: 164 lb 12.8 oz Body Mass Index (BMI) 24.3 Intake & Output: Intake and Output for Last 24 Hours 07/05/23 07/06/23 07/07/23 23:59 23:59 23:59 Intake Total 1705.00 / 1705.00 250 / 250 Output Total 750 / 750 400 / 400 Balance 955.00 / 955.00 -150 / -150 Lab / Micro Data Attestation: I reviewed the patient's lab results. 07/05/23 13:00 07/05/23 13:00 ROS Constitutional Constitutional: Reports systems reviewed and no addt'l complaints, except as documented; Denies anorexia or headache(s) Cardiovascular Cardiovascular: Reports systems reviewed and no addt'l complaints, except as documented; Denies dizziness, dyspnea, nausea or tachypnea Respiratory/Chest Respiratory/Chest: Reports systems reviewed and no addt'l complaints, except as documented; Denies cough, dyspnea, shortness of breath at rest or tachypnea Gastrointestinal Gastrointestinal: Reports systems reviewed and no addt'l complaints, except as documented; Denies abdominal pain, constipation or nausea Genitourinary Genitourinary: Reports systems reviewed and no addt'l complaints, except as documented; Denies burning urination, difficulty urinating, dysuria, urinary frequency or urinary incontinence Musculoskeletal Musculoskeletal: Reports systems reviewed and no addt'l complaints, except as documented Integumentary Integumentary: Reports systems reviewed and no addt'l complaints, except as documented Neurologic Neurologic: Reports systems reviewed and no addt'l complaints, except as documented; Denies abnormal speech, dizziness or headache(s) Psychiatric Psychiatric: Reports systems reviewed and no addt'l complaints, except as documented Endocrine Endocrinology: Reports systems reviewed and no addt'l complaints, except as documented Hematologic/Lymphatic Hematologic/Lymphatic: Reports systems reviewed and no addt'l complaints, except as documented Physical Exam Const alert, oriented x3 and no apparent distress Neck full ROM Resp normal respiratory effort, normal air movement and no retractions Effort and Inspection: able to speak in complete sentences and symmetric chest movement GI soft to palpation Bladder / Kidney Exam: bladder normal to palpation Uterus Palpation: uterus fundus firm Extremity normal to inspection and full ROM Psych mental status grossly normal, thought process normal and cooperative Assessment & Plan (1) Vaginal delivery: COMMENT: KW 39.0 oligo-IOL [place] PLAN: s/p PPD # 2 1. routine post delivery care 2. breast feeding- support given 3. rh positive 4. rubella immune 5. Discharge home (2) Asthma: COMMENT: controlled with singulair albuterol inhaler ordered (3) Encounter for induction of labor: COMMENT: oligohydramnios at 39.0 weeks (4) Hypokalemia: COMMENT: repeat potassium 1 week PLAN: repeat labs prior to D/C Charges/Coding Multi Select Codes Urinary/Genital Urinary/Genital CPT Codes: No Charge
[2023-07-07 08:49] VITALS: BP 118/73; PULSE 74; RESP 16; TEMP 36.7; O2SAT 99
[2023-07-07] MEDS: Acetaminophen 500 MG Tablet 1000 MG PO (08:54)
[2023-07-07] MEDS: Potassium Chloride Oral Tablet 20 MEQ 40 MEQ PO (08:54)
[2023-07-07 09:16] LABS: ALB/GLOB Ratio 0.7 RATIO (0.9-2.4); AST(SGOT) 28 U/L (15-37); Alanine Aminotransfer ALT/SGPT 19 U/L (13-56); Albumin, Serum 2.3 g/dL (3.2-5.0); Alkaline Phosphatase 101 U/L (45-117); Anion Gap 6 (5-15); BUN 8 mg/dL (7-18); BUN/Creat Ratio 10.1 RATIO (10-20); Calcium,Total 8.1 mg/dL (8.5-10.1); Chloride 112 mmol/L (98-107); Creatinine, Serum 0.79 mg/dL (0.55-1.02); EST Glomerular Filtration Rate 91 mL/min (>60); Est Glom Filt Rate - Afr Amer 110 mL/min (>60); Estimated Creatinine Clearance 108.82 ml/min; Globulin 3.2 g/dL (2.2-4.2); Glucose 114 mg/dL (74-106); Potassium 3.4 mmol/L (3.5-5.1); Protein, Total 5.5 g/dL (6.4-8.2); Sodium Level 142 mmol/L (136-145)
== END 2023-07-07 13:35 | disposition home or self-care (01) | DRG 807 ==
PROVIDERS: Admitting Provider Advanced Practice Midwife; Referring Provider Advanced Practice Midwife; Visit Provider Advanced Practice Midwife
DX: O41.03X0 Oligohydramnios, third trimester, not applicable or unspecified (principal); Z37.0 Single live birth; D64.9 Anemia, unspecified; J45.909 Unspecified asthma, uncomplicated; E87.6 Hypokalemia; O70.0 First degree perineal laceration during delivery; O99.52 Diseases of the respiratory system complicating childbirth; O99.284 Endocrine, nutritional and metabolic diseases complicating childbirth; O99.02 Anemia complicating childbirth; Z3A.39 39 weeks gestation of pregnancy
CPT/HCPCS: 59025; 59050; 80053; 85025; 86780; 86850; 86900; 86901; 99221; J7120; A4216; G0378

== ENCOUNTER → 2024-08-21 | Outpatient (CLI) | payer OTHER, SELFPAY ==
[2024-08-26 14:10] LABS: HPV APTIMA, High Risk Negative (Negative)
== END | disposition home or self-care (01) ==
PROVIDERS: Referring Provider Obstetrics & Gynecology; Visit Provider Obstetrics & Gynecology
DX: Z12.4 Encounter for screening for malignant neoplasm of cervix (principal)
CPT/HCPCS: 87624; 88175; G0145